=== PATIENT | male | born 1990 | race African-American/Black ===

== ENCOUNTER 2019-05-02 16:20 | Emergency (ER) | payer MEDICAID ==
[~2019-05-02] VITALS: Ht 170.2 cm; Wt 56.0 kg
[2019-05-02 16:56] LABS: BASOPHILS % (AUTO) 0.5 % (0-1); EOSINOPHILS # (AUTO) 0.1 X10'3 (0-0.9); HEMATOCRIT 33.1 % (42.0-52.0); HEMOGLOBIN 10.6 g/dl (14.0-17.9); LYMPHOCYTES # (AUTO) 1.7 X10'3 (1.1-4.8); LYMPHOCYTES % (AUTO) 55.9 % (21-51); MEAN CORPUSCULAR HEMOGLOBIN 20.7 PG (27.0-31.0); MEAN CORPUSCULAR HGB CONC 32.1 g/dL (33.0-36.5); MEAN CORPUSCULAR VOLUME 64.6 FL (78-98); MONOCYTES # (AUTO) 0.4 X10'3 (0-0.9); MONOCYTES % (AUTO) 11.6 % (2-12); NEUTROPHILS # (AUTO) 0.9 X10'3 (1.8-7.7); PLATELET COUNT 152 X10'3 (140-440); RED BLOOD COUNT 5.12 X10'6 (4.70-6.10); RED CELL DISTRIBUTION WIDTH 16.7 % (11.5-14.5); WHITE BLOOD COUNT 3.1 X10'3 (4.5-11.0)
[2019-05-02 16:59] LABS: CLARITY,URINE CLEAR (Clear); COLOR,URINE YELLOW (Yellow); GLUCOSE, URINE NEGATIVE (Neg); KETONES,URINE NEGATIVE (Neg); LEUKOCYTE ESTERASE ,URINE NEGATIVE (Neg); NITRITES, URINE NEGATIVE (Neg); OCCULT BLOOD,URINE NEGATIVE (Neg); PROTEIN,URINE NEGATIVE (Neg); UROBILINOGEN,URINE 0.2 E.U/dL (0.2-1.0)
[2019-05-02 17:01] LABS: UA COLLECTION TYPE CLN CATCH MIDSTREAM
[2019-05-02 17:10] LABS: ALANINE AMINOTRANSFERASE 18 U/L (12-78); ALBUMIN 3.7 G/DL (3.4-5.0); ALBUMIN/GLOBULIN RATIO 0.8 (1.1-1.5); ALKALINE PHOSPHATASE 38 IU/L (46-116); ANION GAP 6 (8-16); ASPARTATE AMINO TRANSFERASE 12 U/L (10-37); BILIRUBIN,TOTAL 0.3 MG/DL (0.1-1.0); BLOOD UREA NITROGEN 13 MG/DL (7-18); CALCIUM 8.5 MG/DL (8.5-10.1); CHLORIDE 110 MMOL/L (99-107); CREATININE 1.08 MG/DL (0.60-1.10); POTASSIUM 3.5 MMOL/L (3.5-5.1); SODIUM 144 MMOL/L (135-145); TOTAL CARBON DIOXIDE 28.4 MMOL/L (24-32); TOTAL PROTEIN 8.6 G/DL (6.4-8.2); eGFR 81 ML/MIN
[2019-05-02 17:16] LABS: GLUCOSE 88 MG/DL (70-104)
[2019-05-02 17:36] LABS: ANISOCYTOSIS 1+; PLATELET ESTIMATE NORMAL; TOTAL CELLS COUNTED 100
[2019-05-02 17:37] LABS: ELLIPTOCYTES 1+; HYPOCHROMASIA 1+; MICROCYTOSIS 2+; ROULEAUX 1+; SMUDGE CELLS 1+; TARGET CELLS FEW; TEAR DROP CELLS 1+
[2019-05-02] MEDS ORDERED: iohexol 300mg/ml 100ml inj. ONE (18:48)
[2019-05-02 20:30] LABS: % IRON SATURATION 25 % (11-46); IRON 58 UG/DL (53-167); TOTAL IRON BINDING CAPACITY 229 UG/DL (259-388)
[2019-05-02 21:45] VITALS: BP 127/68
== END 2019-05-02 21:47 | disposition home or self-care (01) ==
LOC: ER 16:20
DX: R10.30 Lower abdominal pain, unspecified (principal); D64.9 Anemia, unspecified; V47.0XXA Car driver injured in collision with fixed or stationary object in nontraffic accident, initial encounter; Y93.89 Activity, other specified; Y92.488 Other paved roadways as the place of occurrence of the external cause; Y99.8 Other external cause status
CPT/HCPCS: 36415; 74177; 80053; 81003; 83540; 83550; 85025; 85610; 99284; Q9967

== ENCOUNTER 2019-07-08 10:11 | Emergency (ER) | payer MEDICAID ==
[~2019-07-08] VITALS: Ht 175.3 cm; Wt 63.6 kg
[2019-07-08 10:20] VITALS: BP 126/75
[2019-07-08] MEDS ORDERED: CHLO473M3 PO (10:33)
[2019-07-08] MEDS ORDERED: PENI500T2 PO (10:33)
== END 2019-07-08 10:52 | disposition home or self-care (01) ==
LOC: ER 10:12
DX: K08.89 Other specified disorders of teeth and supporting structures (principal); Z86.2 Personal history of diseases of the blood and blood-forming organs and certain disorders involving the immune mechanism; Z79.899 Other long term (current) drug therapy
CPT/HCPCS: 99283

== ENCOUNTER 2019-09-11 23:01 | Emergency (ER) | payer MEDICAID ==
[~2019-09-11] VITALS: Ht 172.7 cm; Wt 57.2 kg
[~2019-09-11 23:01] MED LIST: CHLO473M3 PO
[2019-09-11] MEDS ORDERED: acetaminophen 325mg tablet PO ONE (23:20)
[2019-09-12 00:03] VITALS: BP 109/57
[2019-09-12] MEDS ORDERED: clindamycin 600mg/D5W 50ml 50 ML IV ONE (00:35)
[2019-09-12] MEDS ORDERED: acetaminophen 325mg tablet PO ONE (00:40)
[2019-09-12 01:08] LABS: MEAN PLATELET VOLUME 8.7 FL (7.4-10.4); NEUTROPHILS # (AUTO) 3.3 X10'3 (1.8-7.7)
[2019-09-12 01:10] LABS: BASOPHILS % (AUTO) 0.4 % (0-1); EOSINOPHILS % (AUTO) 0.1 % (0-6); HEMATOCRIT 33.1 % (42.0-52.0); HEMOGLOBIN 10.8 g/dl (14.0-17.9); LYMPHOCYTES # (AUTO) 2.2 X10'3 (1.1-4.8); LYMPHOCYTES % (AUTO) 34.8 % (21-51); MEAN CORPUSCULAR HEMOGLOBIN 20.4 PG (27.0-31.0); MEAN CORPUSCULAR HGB CONC 32.5 g/dL (33.0-36.5); MEAN CORPUSCULAR VOLUME 62.8 FL (78-98); MONOCYTES # (AUTO) 0.9 X10'3 (0-0.9); MONOCYTES % (AUTO) 13.8 % (2-12); NEUTROPHILS % (AUTO) 50.9 % (42-75); PLATELET COUNT 154 X10'3 (140-440); RED BLOOD COUNT 5.28 X10'6 (4.70-6.10); RED CELL DISTRIBUTION WIDTH 15.8 % (11.5-14.5); WHITE BLOOD COUNT 6.4 X10'3 (4.5-11.0)
[2019-09-12 01:16] LABS: ALANINE AMINOTRANSFERASE 21 U/L (12-78); ALBUMIN 3.2 G/DL (3.4-5.0); ALBUMIN/GLOBULIN RATIO 0.6 (1.1-1.5); ALKALINE PHOSPHATASE 45 IU/L (46-116); ANION GAP 8 (8-16); ASPARTATE AMINO TRANSFERASE 15 U/L (10-37); BILIRUBIN,TOTAL 0.5 MG/DL (0.1-1.0); BLOOD UREA NITROGEN 10 MG/DL (7-18); BUN/CREATININE RATIO 11.4 (5.4-32.0); CALCIUM 8.7 MG/DL (8.5-10.1); CHLORIDE 105 MMOL/L (99-107); CREATININE 0.88 MG/DL (0.60-1.10); POTASSIUM 3.7 MMOL/L (3.5-5.1); SODIUM 140 MMOL/L (135-145); TOTAL CARBON DIOXIDE 26.6 MMOL/L (24-32); TOTAL PROTEIN 8.8 G/DL (6.4-8.2); eGFR > 90 ML/MIN
[2019-09-12 01:18] LABS: GLUCOSE 97 MG/DL (70-104)
--- NOTE | 2019-09-12 02:01 | NUR ---
PT RESTING INB ED. NO FEVER AT THIS TIME.
[2019-09-12] MEDS ORDERED: CLIN-90 PO (02:25)
--- NOTE | 2019-09-12 02:36 | NUR ---
IV DC. IV INTACT. PT TOLERATED WELL.
== END 2019-09-12 02:41 | disposition home or self-care (01) ==
LOC: ER 23:02
DX: K04.7 Periapical abscess without sinus (principal)
CPT/HCPCS: 36415; 80053; 83605; 85025; 87040; 96365; 99283; J3490

== ENCOUNTER 2019-09-12 23:45 | Emergency (ER) | payer MEDICAID ==
[~2019-09-12] VITALS: Ht 172.7 cm; Wt 56.8 kg
[~2019-09-12 23:45] MED LIST changes: +CLIN-90 PO
[2019-09-12 23:55] VITALS: BP 131/68
== END 2019-09-13 01:55 | disposition left against medical advice (07) ==
LOC: ER 23:46
DX: K04.7 Periapical abscess without sinus (principal); Z53.21 Procedure and treatment not carried out due to patient leaving prior to being seen by health care provider

== ENCOUNTER 2019-09-13 02:36 | Emergency (ER) | payer MEDICAID ==
[~2019-09-13] VITALS: Ht 172.7 cm; Wt 56.8 kg
[2019-09-13] MEDS ORDERED: iohexol 300mg/ml 100ml inj. ONE (03:13)
--- NOTE | 2019-09-13 03:20 | NUR ---
NEW IV STARTED ON PT FOR CT. PT ON HIS WAY TO GET A CT SCAN. PT IS AFEBRILE AT THIS TIME.
--- NOTE | 2019-09-13 04:23 | NUR ---
PT RESTING IN BED. AWAITING CT RESULTS. PT HAS NO OTHER REQUEST OR CONCERNS AT THIS TIME.
--- NOTE | 2019-09-13 05:41 | NUR ---
PT SLEEPING. AWAITING CT RESULTS.
--- NOTE | 2019-09-13 06:09 | NUR ---
CALLED [facility] FOR DOCTOR TO DOCTOR CONSULT AND ORAL SURGERY
[2019-09-13 06:15] VITALS: BP 132/45
[2019-09-13] MEDS ORDERED: oxymetazoline 15 ML nasal spray NS ONE (06:20)
[2019-09-13] MEDS ORDERED: acetaminophen 325mg tablet PO STA (06:22)
--- NOTE | 2019-09-13 06:22 | NUR ---
OBTAINED A VERBAL ORDER FOR TYLENOL 650MG PO.
== END 2019-09-13 06:56 | disposition home or self-care (01) ==
LOC: ER 02:36
DX: K04.7 Periapical abscess without sinus (principal); J45.909 Unspecified asthma, uncomplicated; H57.11 Ocular pain, right eye; F10.99 Alcohol use, unspecified with unspecified alcohol-induced disorder; Z79.899 Other long term (current) drug therapy; Y90.9 Presence of alcohol in blood, level not specified
CPT/HCPCS: 70487; 99284; Q9967

== ENCOUNTER 2020-06-20 04:43 | Emergency (ER) | payer MEDICAID ==
[~2020-06-20] VITALS: Ht 172.7 cm; Wt 63.6 kg
[~2020-06-20 04:43] MED LIST changes: -CLIN-90 PO; +CLIN-97 PO
--- NOTE | 2020-06-20 04:54 | NUR ---
HAS RLQ AND RUQ PAIN, NO REBOUND TENDERNESS, PAIN WITH PALPATION TO THOSE AREAS.
[2020-06-20 05:18] LABS: EOSINOPHILS # (AUTO) 0.1 X10'3 (0-0.9); HEMOGLOBIN 11.5 g/dl (14.0-17.9); LYMPHOCYTES # (AUTO) 1.6 X10'3 (1.1-4.8); MEAN CORPUSCULAR VOLUME 64.1 FL (78-98); MONOCYTES # (AUTO) 0.6 X10'3 (0-0.9); NEUTROPHILS # (AUTO) 2.1 X10'3 (1.8-7.7)
[2020-06-20 05:20] LABS: BASOPHILS % (AUTO) 0.6 % (0-1); EOSINOPHILS % (AUTO) 1.2 % (0-6); HEMATOCRIT 36.9 % (42.0-52.0); LYMPHOCYTES % (AUTO) 37.3 % (21-51); MEAN CORPUSCULAR HGB CONC 31.2 g/dL (33.0-36.5); MEAN PLATELET VOLUME 9.2 FL (7.4-10.4); MONOCYTES % (AUTO) 13.1 % (2-12); NEUTROPHILS % (AUTO) 47.8 % (42-75); PLATELET COUNT 170 X10'3 (140-440); RED BLOOD COUNT 5.76 X10'6 (4.70-6.10); RED CELL DISTRIBUTION WIDTH 16.9 % (11.5-14.5); WHITE BLOOD COUNT 4.4 X10'3 (4.5-11.0)
[2020-06-20 05:30] LABS: CLARITY,URINE CLEAR (Clear); COLOR,URINE YELLOW (Yellow); GLUCOSE, URINE NEGATIVE (Neg); KETONES,URINE NEGATIVE (Neg); LEUKOCYTE ESTERASE ,URINE NEGATIVE (Neg); NITRITES, URINE NEGATIVE (Neg); OCCULT BLOOD,URINE NEGATIVE (Neg); PROTEIN,URINE NEGATIVE (Neg)
[2020-06-20 05:32] LABS: ALANINE AMINOTRANSFERASE 16 U/L (12-78); ALBUMIN 3.6 G/DL (3.4-5.0); ALBUMIN/GLOBULIN RATIO 0.6 (1.1-1.5); ALKALINE PHOSPHATASE 54 IU/L (46-116); ANION GAP 7 (8-16); ASPARTATE AMINO TRANSFERASE 13 U/L (10-37); BILIRUBIN,TOTAL 0.5 MG/DL (0.1-1.0); BLOOD UREA NITROGEN 8 MG/DL (7-18); BUN/CREATININE RATIO 9.4 (5.4-32.0); CALCIUM 8.7 MG/DL (8.5-10.1); CHLORIDE 105 MMOL/L (99-107); CREATININE 0.85 MG/DL (0.60-1.10); LIPASE 58 U/L (73-393); POTASSIUM 3.4 MMOL/L (3.5-5.1); SODIUM 140 MMOL/L (135-145); TOTAL PROTEIN 9.5 G/DL (6.4-8.2); eGFR > 90 ML/MIN
[2020-06-20 05:34] LABS: UA COLLECTION TYPE NON-SPECIFIED
[2020-06-20 05:35] LABS: GLUCOSE 86 MG/DL (70-104)
[2020-06-20] MEDS ORDERED: sucralfate 1gm/10ml UD suspension PO SCH (05:55)
[2020-06-20] MEDS ORDERED: mag hydrox/Alum hydrox/simeth 30ml oral suspension PO ONE (05:55)
[2020-06-20] MEDS ORDERED: LIDOcaine Viscous 15ml cup MM PRN (05:55)
[2020-06-20] MEDS ORDERED: pantoprazole 40 MG vial IV ONE (05:55)
[2020-06-20] MEDS ORDERED: famotidine/PF 10 mg/ml inj IV ONE (05:55)
[2020-06-20] MEDS ORDERED: OMEP20CA15 PO (06:14)
[2020-06-20 06:53] VITALS: BP 124/82
[2020-06-20 06:56] LABS: ANISOCYTOSIS 1+; MICROCYTOSIS 2+; PLATELET ESTIMATE NORMAL; TOTAL CELLS COUNTED 100
[2020-06-20 06:57] LABS: HYPOCHROMASIA 1+; POIKILOCYTOSIS FEW
== END 2020-06-20 06:55 | disposition home or self-care (01) ==
LOC: ER 04:44
DX: R10.11 Right upper quadrant pain (principal); Z60.2 Problems related to living alone; Z79.2 Long term (current) use of antibiotics; Z79.899 Other long term (current) drug therapy
CPT/HCPCS: 36415; 80053; 81003; 83690; 85007; 85025; 96374; 96375; 99284; C9113; J3490

== ENCOUNTER 2020-08-21 13:07 | Emergency (ER) | payer MEDICAID ==
[~2020-08-21] VITALS: Ht 172.7 cm; Wt 63.0 kg
[~2020-08-21 13:07] MED LIST changes: +OMEP20CA15 PO
--- NOTE | 2020-08-21 13:53 | NUR ---
patient LWOBS,Dr. Barajas made aware.
== END 2020-08-21 13:55 | disposition left against medical advice (07) ==
LOC: ER 13:07
DX: R05 Cough (principal); R09.89 Other specified symptoms and signs involving the circulatory and respiratory systems; Z53.21 Procedure and treatment not carried out due to patient leaving prior to being seen by health care provider

== ENCOUNTER 2021-01-26 19:21 | Emergency (ER) | payer MEDICAID ==
[~2021-01-26] VITALS: Ht 172.7 cm; Wt 63.6 kg
[2021-01-26 19:52] VITALS: BP 138/86
[2021-01-26] MEDS ORDERED: DOXYCYCLINE 100MG CAPSULE PO STA (20:23)
[2021-01-26] MEDS ORDERED: CefTRIAXone 1000mg IM Kit (w/lidocaine diluent) IM STA (20:23)
[2021-01-26] MEDS ORDERED: DOXY100C2 PO (20:40)
[2021-01-26 21:07] LABS: CLARITY,URINE SLIGHTLY CLOUDY (Clear); COLOR,URINE YELLOW (Yellow); GLUCOSE, URINE NEGATIVE (Neg); KETONES,URINE NEGATIVE (Neg); LEUKOCYTE ESTERASE ,URINE NEGATIVE (Neg); NITRITES, URINE NEGATIVE (Neg); OCCULT BLOOD,URINE NEGATIVE (Neg); PROTEIN,URINE NEGATIVE (Neg)
[2021-01-26 21:11] LABS: UA COLLECTION TYPE VOIDED
[2021-01-26 21:13] LABS: BACTERIA,URINE FEW /HPF (Neg); MUCUS STRANDS FEW /LPF (Neg); RBC,URINE 0-2 /HPF (0-2); SQUAMOUS EPITHELIAL CELL,UR FEW /LPF (FEW)
[2021-01-26 21:14] LABS: AMORPHOUS PHOSPHATES 3+
== END 2021-01-26 21:06 | disposition home or self-care (01) ==
LOC: ER 19:22
DX: R30.0 Dysuria (principal); R20.2 Paresthesia of skin; Z86.2 Personal history of diseases of the blood and blood-forming organs and certain disorders involving the immune mechanism; Z72.89 Other problems related to lifestyle; Z79.2 Long term (current) use of antibiotics; Z79.899 Other long term (current) drug therapy
CPT/HCPCS: 36415; 81001; 87088; 87491; 87591; 96372; 99283; J0696

== ENCOUNTER 2022-07-25 00:42 | Emergency (ER) | payer MEDICAID ==
[~2022-07-25] VITALS: Ht 172.7 cm; Wt 70.5 kg
[2022-07-25 00:45] VITALS: BP 134/79
== END 2022-07-25 02:53 | disposition left against medical advice (07) ==
LOC: ER 00:42
DX: S69.91XA Unspecified injury of right wrist, hand and finger(s), initial encounter (principal); Z53.21 Procedure and treatment not carried out due to patient leaving prior to being seen by health care provider; W49.04XA Ring or other jewelry causing external constriction, initial encounter; Y93.89 Activity, other specified; Y92.89 Other specified places as the place of occurrence of the external cause; Y99.8 Other external cause status

== ENCOUNTER 2025-07-17 00:32 | Inpatient (IN) | payer MEDICAID ==
[2025-07-17] VITALS (17 sets, daily range): BP systolic 85–141; BP diastolic 42–73; PULSE 77–111; RESP 13–19; TEMP 97.9–101.2; O2SAT 92–98
[~2025-07-17] VITALS: Ht 172.7 cm; Wt 68.2 kg
[~2025-07-17 00:32] MED LIST changes: +CHLO473M13 PO; -CHLO473M3 PO; +CLIN-224 PO; -CLIN-97 PO
--- NOTE | 2025-07-17 01:28 | Physician Documentation ---
History of Present Illness ~ Chief Complaint: Abdominal Pain w/vomiting Stated Complaint: APPENDIX DISCOMFORT Time Seen by MD: 01:27 Primary Medical Doctor: NO DOCTOR HPI Patient presents to the emergency room for evaluation of right lower quadrant pa in. He says symptoms began two days ago. Bowel movements and urination reported to be normal. Medication Reconciliation Allergies: Coded Allergies: No Known Allergies (Unverified , 07/17/25) Scheduled Chlorhexidine Gluconate (Periogard), 15 ML PO Q12H Clindamycin HCL* (Clindamycin HCL*), 1 CAP PO Q6H Omeprazole (Omeprazole), 2 CAP PO BID Past Medical History Past Medical History: Anemia Past Surgical History: noncontributory Alcohol Use: Occasionally Drug Use: none Lives with: Alone Lives In: Home Review of Systems ROS All review of systems negative except as per HPI Physical Exam Vital Signs: Temperature: 100.7, Source: Oral, Heart Rate: 96, Respiratory Rate: 16, BP: 121/67, Pulse Oximetry: 98, Weight: 68.200 Physical Exam General: Patient is awake, alert, oriented x4 in no acute distress and well appearing.~ Head: Normocephalic and atraumatic. Eyes: Conjunctival normal. EOMI. PERRL. ENT: Mucous membranes moist. Neck: Supple, trachea is midline. Chest: Clear to auscultation bilaterally without rales, rhonchi, or wheezes. There is no accessory muscle use or retractions. Cardiac: RRR without murmurs, gallops, or rubs. Abd: Soft, nondistended, positive right lower quadrant tenderness to palpation without peritonitis Progress Results/Orders Results/Orders Orders - QUE WASHINGTON MD Ct Abdomen Pelvis (07/17/25 01:40) Piperacillin/Tazo 4.5gm/100ml (Zosyn 4.5 (07/17/25 02:30) Page Hospitalist (07/17/25 02:41) Fill Out Med Reconciliation (07/17/25 02:41) Completed Orders - QUE WASHINGTON MD Cbc/Diff (07/17/25 00:46) BMP (07/17/25 00:46) Lipase (07/17/25 00:46) CMP (07/17/25 00:46) Ketorolac Trometh 15mg/Ml Vial (Toradol (07/17/25 01:30) Ondansetron Inj. (Zofran 4mg/2ml Vial) (07/17/25 01:30) Ct Abdomen Pelvis (07/17/25 01:40) Procalcitonin (07/17/25 01:32) Ua W/Microscopic, Cult If Ind (07/17/25 01:40) Morphine 4mg/Ml Inj. (Morphine Inj.) (07/17/25 02:30) Piperacillin/Tazo 4.5gm/100ml (Zosyn 4.5 (07/17/25 02:41) Medications Received in ER Medications (Trade) Dose Ordered Sig/Lazaro Route PRN Reason Start Time Stop Time Status Last Admin Dose Admin (Toradol injection) 15 mg ONCE ONCE IV 07/17/25 01:30 07/17/25 01:31 DC 07/17/25 02:21 15 MG (Zofran 4mg/2ml vial) 4 mg ONCE ONCE IV 07/17/25 01:30 07/17/25 01:31 DC 07/17/25 02:21 4 MG Vital Signs 07/17/25 07/17/25 00:41 02:21 Temp 100.7 Pulse 96 Resp 16 17 B/P (MAP) 121/67 Pulse Ox 98 Laboratory Tests Test 07/17/25 01:40 07/17/25 01:43 Urine Specimen Description Cln catch midstream Urine Color Yellow Urine Clarity Slightly cloudy Urine pH 6.5 Urine Specific [place] 1.025 Urine Protein 30 H Urine Glucose (UA) Negative Urine Ketones >=80 Urine Occult Blood Trace-intact Urine Nitrite Negative Urine Bilirubin Small Urine Urobilinogen 0.2 Urine Leukocyte Esterase Negative Urine RBC 3-10 Urine WBC 0-4 Urine Squamous Epithelial Cells Few Urine Bacteria None seen Urine Mucus Few Urine Culture Indicated Not ind Volume Urine Centrifuged 10 ml Urine Comment White Blood Count 10.1 Red Blood Count 5.44 Hemoglobin 11.3 L Hematocrit 34.9 L Mean Corpuscular Volume 64.1 L Mean Corpuscular Hemoglobin 20.7 L Mean Corpuscular Hemoglobin Concent 32.3 L Red Cell Distribution Width 16.8 H Platelet Count 135 L Mean Platelet Volume 8.7 Neutrophils (%) (Auto) 89.7 H Lymphocytes (%) (Auto) 5.5 L Monocytes (%) (Auto) 4.3 Eosinophils (%) (Auto) 0.2 Basophils (%) (Auto) 0.3 Neutrophils # (Auto) 9.0 H Lymphocytes # (Auto) 0.6 L Monocytes # (Auto) 0.4 Eosinophils # (Auto) 0.0 Basophils # (Auto) 0.0 CBC Comment Sodium Level 138 Potassium Level 3.3 L Chloride Level 102 Carbon Dioxide Level 28.8 Anion Gap 7 L Blood Urea Nitrogen 12 Creatinine 0.81 Estimated GFR/1.73 m2 > 90 BUN/Creatinine Ratio 14.8 Glucose Level 122 H Calcium Level 8.5 Total Bilirubin 0.6 Aspartate Amino Transf (AST/SGOT) 14 Alanine Aminotransferase (ALT/SGPT) 23 Alkaline Phosphatase 55 Total Protein 7.9 Albumin 3.9 Globulin 4.0 Albumin/Globulin Ratio 1.0 L Lipase 11 L Procalcitonin 1.75 H Chemistry Comments Medical Decision Making Additional information obtaine: N/A Findings Patient presents to the emergency room for evaluation of right lower quadrant pain. Differentials include but are not limited to appendicitis constipation diverticulitis kidney stone pancreatitis therefore emergent labs and imaging indicated. Labs concerning for elevation of procalcitonin although that has a reassuring white blood cell count. CT scan positive for appendicitis without rupture. IV Zosyn initiated. Patient's vitals are stable. Surgeon has been consulted Diff Dx GI Bleed:Consideration: Include: AE fistula, Angiodysplasia, Bleeding diathesis, Blood loss anemia, Carcinoma, Diverticulosis, Diverticulitis, Esopha geal varicies, Esophagitis, Gastritis, Gastroenteritis, Inflammatory BD, Enedelia-Edward syndrome, Meckel's diverticulum, PUD, Other Diff Dx Pain:Considerations: Include: AAA, Angina/AK, Aortic dissection, Appendicitis, Bowel obstruction, Cholangitis, Cholecystitis, Cholelithasis, Constipation, Diverticular disease, Esophageal rupture, Esophagitis, Gastritis, Gastroenteritis, GI hemorrhage, Hepatitis, Hernia, Inflammatory BD, Ischemic bowel, Mass, Pancreatitis, Porphyria, PUD, Testicular torsion, Trauma, intraabdominal, Urinary obstruction, Urinary tract infection, Urolithiasis, Other Diff Dx N/V/D:Considerations: Include: Appendicitis, Bowel obstruction, Dehydration, DKA, Diarrhea - bacterial, Diarrhea - parasitic, Diarrhea - viral, Diverticulitis, Diverticulosis, Drug toxicity, Electrolyte imbalance, Food poisoning, Gastroenteritis, GE reflux, GI bleed, Hepatitis, Hernia, Hypovolemia, Hypotension, Inflammatory BD, Impaction, Malnutrition, Pancreatitis, PUD, Renal failure, Urinary obstruction, UTI, Urolithiasis, Other Diff Dx Rectal:Considerations: Include: Fissure, Fistula, Foreign body, Impaction, Perirectal abscess, Prostatitis, Rectal prolapse, Subcutaneous abscess, Thrombosed hemorrhoid, Ulcer, UTI, Other Departure Admitted to Inpatient Unit: yes, to hospitalist Impression: Primary Impression: Appendicitis Condition: Guarded Referrals: NO PRIMARY CARE PROVIDER (PCP) Critical Care Note Total Time (mins): 39 Critical Care Note The very real possibility of a deterioration of this patient's condition required the highest level of my preparedness for sudden, emergent intervention. I provided critical care services, which included medication orders, frequent reevaluations of the patient's condition and response to treatment, ordering and reviewing test results, and discussing the case with various consultants. Excludes time spent performing separately billable procedures. The critical care time associated with the care of the patient was 39 minutes not counting procedures Signature Scribe Signature: No scribe Attestation: The note accurately reflects work and decisions made by me.Que Washington MD 07/17/25 02:47 QUE WASHINGTON MD Jul 17, 2025 01:28
[2025-07-17 01:55] LABS: MEAN PLATELET VOLUME 8.7 FL (7.4-10.4); RED CELL DISTRIBUTION WIDTH 16.8 % (11.5-14.5)
[2025-07-17 02:11] LABS: CREATININE 0.81 MG/DL (0.60-1.10); TOTAL CARBON DIOXIDE 28.8 MMOL/L (24-32); eCRCL 123 ML/MIN; eGFR > 90 ML/MIN
[2025-07-17 02:12] LABS: LEUKOCYTE ESTERASE ,URINE NEGATIVE (Neg); NITRITES, URINE NEGATIVE (Neg); OCCULT BLOOD,URINE TRACE-INTACT (Neg)
[2025-07-17 02:19] LABS: UA COLLECTION TYPE CLN CATCH MIDSTREAM
[2025-07-17 02:21] LABS: MUCUS STRANDS FEW /LPF (Neg); SQUAMOUS EPITHELIAL CELL,UR FEW /LPF (FEW)
[2025-07-17] MEDS: ondansetron/PF 4mg/2ml inj IV ONE (02:21)
[2025-07-17] MEDS: ketorolac trometh 15mg/ml vial 15 MG/ML ML IV ONE (02:21)
--- NOTE | 2025-07-17 02:37 | RADIOLOGY REPORT ---
Exam: CT CT ABDOMEN PELVIS History: RLQ pain Comparison Study: XR CHEST 2 VIEWS on DOS: 08/14/24 Technique: Multidetector spiral CT of the abdomen was performed from lung bases to pubic symphysis. Imaging was performed without IV contrast. Axial, coronal and sagittal multiplanar reformats were obtained from the axial data set by the technologist. Radiation Dose : 1. Abdomen/Pelvis: CTDIvol 9.8 mGy, DLP 467.42 mGy*cm. Findings: Evaluation of solid organs is limited due to lack of intravenous contrast use. Lung Bases: No acute or significant lung base finding. Normal heart size. No pleural or pericardial effusion. Liver: The liver is normal in size. No focal lesions. Gallbladder and Biliary Tree: Unremarkable Spleen: Unremarkable Pancreas: The pancreas is grossly normal in appearance. Adrenal Glands: Unremarkable Kidneys: Kidneys are grossly normal without calculi or hydronephrosis. Bladder: Grossly unremarkable for degree of distention. Bowel: Small sliding-type hiatal hernia. The stomach is grossly normal in appearance. Small bowel and colon are normal in caliber and distribution. The appendix is fluid-filled and dilated, measuring up to 14 mm in diameter, with a proximal appendicolith. Moderate diffuse periappendiceal inflammatory change. No definite evidence of perforation or periappendiceal abscess.. Ascites: Absent Lymphadenopathy: No mesenteric, retroperitoneal or periportal lymphadenopathy. Abdominal Wall and Mesentery: Unremarkable. Vasculature: The visualized abdominal aorta is normal in size and caliber. Evaluation of abdominal and pelvic vessels is limited due to lack of intravenous contrast. Pelvic Organs: Unremarkable Musculoskeletal: No aggressive focal bony lesions, acute fractures or dislocation. IMPRESSION: 1. Acute appendicitis without definite evidence of perforation or periappendiceal abscess. 2. Small sliding-type hiatal hernia. Critical Result: Acute appendicitis Findings discussed with YUDITH HAYNES at 07/17/2025 05:34 AM EST, and acknowledged receipt and understanding of the findings. Radiation optimization: All CT scans at this facility use at least one of these dose optimization techniques: automated exposure control mA and/or kV adjustment per patient size (includes targeted exams where dose is matched to clinical indication) or iterative reconstruction.
[2025-07-17] MEDS: piperacillin/tazo 4.5gm/100ml 100 ML IV ONE (02:47)
[2025-07-17] MEDS: piperacillin/tazo 4.5gm/100ml 100 ML IV SCH (02:47)
[2025-07-17] MEDS ORDERED: magnesium sulf-water 4G/100mL 100 ML IV PRN (03:10)
[2025-07-17] MEDS ORDERED: magnesium sulf-water 2g/50mL 50 ML IV PRN (03:10)
[2025-07-17] MEDS ORDERED: potassium Cl 20 mEq SR tablet PO PRN ×2 (03:10)
[2025-07-17] MEDS ORDERED: mag hydrox/Alum hydrox/simeth 30ml oral suspension PO PRN (03:10)
[2025-07-17] MEDS ORDERED: potassium Cl 40MEQ/1/2NS 520ml 520 ML IV PRN (03:10)
[2025-07-17] MEDS ORDERED: ondansetron/PF 4mg/2ml inj IV PRN ×2 (03:10→17:00)
[2025-07-17] MEDS ORDERED: magnesium Cl slow-release 64mg tablet PO PRN (03:10)
--- NOTE | 2025-07-17 03:14 | HISTORY AND PHYSICAL-Residence ---
History & Physical Providers to CC Resident Creating Document: ADONIS FATIMA RES ~ History of Present Illness Primary Medical Doctor: NO DOCTOR Reason for Admit\Complaint: Abdominal pain History of Present Illness A 35-year-old male with no past medical history presented to the ED in view of left lower quadrant abdominal pain for the last two days. Patient states that he started to have sharp abdominal pain with a severity of 9/10 in the umbilical region that radiated to the left lower quadrant. The pain is more pronounced in the left lower quadrant currently. Abdominal pain increases and moving around and relieves with rest. Patient had associated nausea and vomitings for about at least 90 10 episodes. Patient has loss of appetite. Patient states that he had a fever with a temperature of about 100.7 associated with chills and rigors. 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 Chest pressure, chest discomfort, palpitations, syncope, lower extremity edema, paroxysmal nocturnal dyspnea Respiratory: No Shortness of breath and cough, No hemoptysis Gastrointestinal: Nausea vomitings, abdominal pain, loss of appetite Musculoskeletal: No joint pains. Integumentary: No change in skin, hair, nails. No swelling, bruising, abrasions Neurologic: No headache, neck pain, numbness or tingling of the extremities, weakness Psychiatric: No delusions, depression, loss of interest in normal activity or change in sleep pattern, hallucinations, suicidal ideations Endocrine: No fatigue, weakness, polydipsia, polyuria, change in appetite, heat or cold intolerance, sweating, dry skin Exam Vitals: Vital Signs Date Time Temp Pulse Resp B/P (MAP) Pulse Ox O2 Delivery O2 Flow Rate FiO2 07/17/25 02:21 17 07/17/25 00:41 100.7 96 121/67 98 General: General: Alert, awake, oriented, in acute distress HEENT: PERRLA, no icterus, pallor, lymphadenopathy, carotid bruit Respiratory system: Bilateral vesicular breath sounds heard, no adventitious breath sounds CVS: S1-S2 heard, no murmurs/rubs/gallop GI: Tenderness in the left lower quadrant, sluggish bowel sounds Soft, no organomegaly, no guarding/rigidity Neuro: No focal neurological deficits present Mental status exam: alert and consciousness, orientation, memory, speech - Cranial nerve test: Cranial nerves 2-12 intact - Motor system: Nutrition, Tone 3+, Power 5/5, no involuntary movements - Sensory system: Intact - Reflex testing: Biceps, triceps and knee reflexes 2+ - Cerebellar: Normal Extremities: No edema cyanosis clubbing/deformities Skin: Warm and dry Diagnostic Data Last Recorded Lab Results: 07/17/25 0143 07/17/25 0143 Advance Care Planning Advanced Care plannin - 30 Minutes (I spent 20 minutes discussing various resuscitative measures and the patient decided to be full code) Additional Plan Assessment: A 35-year-old male with no past medical history presented to the ED in view of abdominal pain. Patient is admitted for the evaluation management of acute appendicitis. Plan: Acute appendicitis, probably complicated Sepsis, POA CT abdomen: Acute appendicitis without definite evidence of perforation or periappendiceal abscess. Normal WBC count, increased neutrophilic predominance, elevated procalcitonin Patient received Zosyn in the ED. Continue IV Zosyn q.12h IV fluids at 100 cc/hour Pain management: IV Zofran 4 mg q.6h p.r.n. for nausea and vomitings Dr. Meyer is consulted, awaiting recommendations Mild hypokalemia On potassium replacement protocol Continue to monitor potassium levels Code status: Full code Diet: NPO DVT prophylaxis: SCD Disposition: Admit to surgical floor, follow up with Dr. Meyer in a.m. Adonis Fatima MD Internal Medicine, PGY 2 Date of Service: Jul 17, 2025 Billing Provider: LB GREEN MD Addendum Attestation I agree with the residents assessment and plan as below: 35 year old male admitted with appendicitis Plan: morphine prn npo surgery consult CCT 51 min using HIPPA compliant A/V technology ADONIS FATIMA, RES Jul 17, 2025 03:14 LB GREEN MD Jul 17, 2025 04:55
[2025-07-17 03:39] LABS: PLATELET ESTIMATE DECREASED
[2025-07-17] MEDS: morphine 4 MG/ML inj SYRINge IV ONE (03:44)
[2025-07-17] MEDS: normal saline 1000ml 1,000 ML IV SCH (03:54)
[2025-07-17] MEDS: HYDROcodone/acetaminophen 5mg/325mg tablet PO PRN (07:29)
[2025-07-17] MEDS: ondansetron/PF 4mg/2ml inj IV PRN (07:29)
[2025-07-17] MEDS: docusate sod 100mg capsule PO SCH (07:57)
[2025-07-17] MEDS: K and/or MAG REPLACEMENT MC SCH (07:59)
--- NOTE | 2025-07-17 10:12 | PROGRESS NOTE ---
Progress Note ID Providers to CC ~ Progress Note Progress Note: pt seen and examined-needs VANNA Lofton MD Jul 17, 2025 10:12
[2025-07-17] MEDS ORDERED: labetalol 20mg/4ml (5mg/ml) syringe IV PRN (17:00)
[2025-07-17] MEDS ORDERED: fentaNYL/PF 50MCG/1 ML 2ML syringe IV PRN ×2 (17:00)
[2025-07-17] MEDS ORDERED: morphine 4 MG/ML inj SYRINge IV PRN ×2 (17:00)
[2025-07-17] MEDS ORDERED: hydrALAZINE 20mg/ml inj. IV PRN (17:00)
[2025-07-17] MEDS ORDERED: ringers solution, lacted 1,000 ML IV SCH (17:00)
--- NOTE | 2025-07-17 17:48 | PROGRESS NOTE ---
Progress Note ID Providers to CC ~ Progress Note Progress Note: discussed procedure including risks/benefits/alternatives VANNA VIDALES MD Jul 17, 2025 17:48
[2025-07-17] MEDS ORDERED: etomidate 2mg/ml inj. ONE (18:13)
[2025-07-17] MEDS ORDERED: fentaNYL/PF 50MCG/1 ML 2ML syringe ONE (18:14)
[2025-07-17] MEDS ORDERED: midazolam 1 mg/ML 2ml injection ONE (18:15)
[2025-07-17] MEDS ORDERED: propofol inj 20 ML IV ONE (18:15)
[2025-07-17] MEDS ORDERED: ondansetron/PF 4mg/2ml inj ONE (18:15)
[2025-07-17] MEDS ORDERED: rocuronium 10mg/ml inj IV ONE (18:15)
[2025-07-17] MEDS ORDERED: dexamethasone sod phosphate 4mg/ml inj. ONE (18:16)
[2025-07-17] MEDS ORDERED: BUPIVAcaine 2.5mg/ml inj 50ml vial (contains preservative) ONE (18:17)
[2025-07-17] MEDS ORDERED: acetaminophen 1,000mg/100ml IV 100 ML IV ONE (18:49)
[2025-07-17] MEDS ORDERED: ceFOXitin 1000 MG inj ONE ×2 (19:03)
--- NOTE | 2025-07-17 19:58 | OPERATIVE REPORT ---
Operative Report Providers to CC ~ Date of Procedure: Jul 17, 2025 Pre-Operative Diagnosis: Acute appendicitis Post-Operative Diagnosis SAME as PRE-Op Procedure Performed cortney tan Surgeon: jg booth Anesthesiologist: Jhony June Type of Anesthesia: General Findings: gangrenous appendicitis Estimated Blood Loss: 50 ml Specimen Removed: VANNA Bone MD Jul 17, 2025 19:58
[2025-07-17] MEDS ORDERED: HYDROcodone/acetaminophen 10/325mg tab PO PRN (20:05)
[2025-07-17] MEDS: BUPIVAcaine/PF 2.5 mg/ml (0.25%) 30ml vial IJ ONE (20:53)
[2025-07-18] VITALS (8 sets, daily range): BP systolic 111–127; BP diastolic 58–80; PULSE 83–107; RESP 16–19; TEMP 98–100.2; O2SAT 95–98
[2025-07-18] MEDS: piperacillin/tazo 3.375gm/50ml 50 ML IV SCH (00:40)
--- NOTE | 2025-07-18 02:05 | OPERATIVE REPORT ---
DATE OF SURGERY: 07/17/2025 DICTATING PHYSICIAN: Norris Meyer MD PREOPERATIVE DIAGNOSIS: Appendicitis. POSTOPERATIVE DIAGNOSIS: Gangrenous appendicitis. PROCEDURE PERFORMED: Robotic appendectomy. SURGEON: Norris Meyer MD OTHER SALES SUPPORT WORKER: None. ANESTHESIA: General/Jhony June MD. DRAINS: Nicolás drain. INDICATIONS FOR OPERATION: The patient is a 35-year-old male with history of abdominal pain, found to have acute appendicitis, taken to surgery robotic appendectomy. INTRAOPERATIVE FINDINGS: Gangrenous appendicitis. DESCRIPTION OF PROCEDURE: The patient was placed supine on the operating table. After induction of general anesthesia and placement of endotracheal tube, the abdomen was prepped and draped. A suprapubic incision was then obtained. A supraumbilical incision was made and a #12 port was placed using open technique. Pneumoperitoneum was begun by insufflation of CO2. Two ports were placed in the left lower quadrant and one in the right upper quadrant. The robot was then brought to the field. Camera port was docked, camera placed and camera targeted. Additional ports were then docked and instruments placed. Abdomen explored. The patient was found to have gangrenous appendicitis. Cecum was mobilized in the right lower quadrant. The appendiceal mesentery. Hemostasis was found to be adequate. Robotic instruments were removed. The robot removed from the field. The appendix was placed in a lap bag using the laparoscope. The abdomen was then copiously irrigated with large amount of antibiotic-containing solution. A #19 Nicolás drain was placed through a port incision directed into the right gutter and pelvis. Ports removed under laparoscopic vision with no evidence of active bleeding. Appendix was removed using a lap bag. Wounds were then closed in layers. Skin was closed with clips. Dressing applied. The patient was transferred to recovery in stable condition. Norris Meyer MD TID: [id number] RECEIPT: [id number] KB/CAM
[2025-07-18 06:22] LABS: MEAN PLATELET VOLUME 10.0 FL (7.4-10.4); RED CELL DISTRIBUTION WIDTH 16.7 % (11.5-14.5)
[2025-07-18 06:46] LABS: CREATININE 0.68 MG/DL (0.60-1.10); TOTAL CARBON DIOXIDE 25.8 MMOL/L (24-32); eCRCL 146 ML/MIN; eGFR > 90 ML/MIN
[2025-07-18] MEDS: magnesium hydroxide 30ml (MOM) UD suspension PO PRN (07:05)
--- NOTE | 2025-07-18 15:31 | PROGRESS NOTE- Residence ---
Progress Note - Resident Providers to CC Resident Creating Document: WEI PLASENCIA RES ~ Antibiotic Timeout Antibiotic Ordered?: Yes Subjective Patient was seen and examined on bedside, reports pain over surgical area, passing flatus but no has passed bowel movement. Objective Vital Signs Date Time Temp Pulse Resp B/P (MAP) Pulse Ox O2 Delivery O2 Flow Rate FiO2 07/18/25 11:48 14 07/18/25 10:00 98.7 86 111/70 (84) 96 Room Air 07/18/25 07:19 0.0 Result Diagram: 07/18/2552507/18/25525 General: Alert, awake, oriented, in acute distress HEENT: PERRLA, no icterus, pallor, lymphadenopathy, carotid bruit Respiratory system: Bilateral vesicular breath sounds heard, no adventitious breath sounds CVS: S1-S2 heard, no murmurs/rubs/gallop GI: soft and non tender,normal bowel sounds, no organomegaly, no guarding/rigidity surgical site dry and clean, KATHLEEN drain in place. Neuro: No focal neurological deficits present Mental status exam: alert and consciousness, orientation, memory, speech - Cranial nerve test: Cranial nerves 2-12 intact - Motor system: Nutrition, Power 5/5, no involuntary movements - Sensory system: Intact - Reflex testing: Biceps, triceps and knee reflexes 2+ - Cerebellar: Normal Extremities: No edema cyanosis clubbing/deformities Skin: Warm and dry Advance Care Planning Advanced Care plannin - 30 Minutes Plan Plan A 35-year-old male with no past medical history presented to the ED in view of left lower quadrant abdominal pain. Plan: Gangrenous appendicitis Appendectomy Postoperative day 2 Sepsis, POA CT abdomen: Acute appendicitis without definite evidence of perforation or periappendiceal abscess. WBC count normal, elevated procal Patient received Zosyn in the ED. Continue IV Zosyn Q 8h day 1 IV fluids at 100 cc/hour IV Zofran 4 mg q.6h p.r.n. for nausea and vomitings Consulted Dr. Baugh, and patient underwent appendectomy. Microcytic hypochromic anemia HGB: 10.3 Hct 32.4 Follow up with iron panel Thrombocytopenia Platelet 128 Possbily dilutional. Monitor CBC and signs of bleeding Hypokalemia resolved Code status: Full code Diet: Clear liquid diet DVT prophylaxis: SCD Disposition: will continue IV zoysn. Date of Service: Jul 18, 2025 Billing Provider: ANDRE GARCÍA MD Common Visit Codes: [id number] INP/OBS CARE(HIGH) WEI PLASENCIA, RES Jul 18, 2025 15:31 ANDER GARCÍA MD Jul 18, 2025 17:14
[2025-07-19 05:00] VITALS: BP 130/81; PULSE 90; RESP 20; TEMP 98.8; O2SAT 98
[2025-07-19 06:01] LABS: MEAN PLATELET VOLUME 9.1 FL (7.4-10.4); RED CELL DISTRIBUTION WIDTH 16.8 % (11.5-14.5)
[2025-07-19 06:20] LABS: CREATININE 0.65 MG/DL (0.60-1.10); TOTAL CARBON DIOXIDE 28.3 MMOL/L (24-32); eCRCL 153 ML/MIN; eGFR > 90 ML/MIN
--- NOTE | 2025-07-19 06:27 | PROGRESS NOTE ---
DATE: 07/18/2025 DICTATING PHYSICIAN: Norris Meyer MD A 35-year-old male status post robotic appendectomy for ruptured appendicitis pain is improving. On examination, vital signs are unremarkable. output noted. Labs include a WBC of 8, hematocrit of 32. IMPRESSION: Status post robotic appendectomy for ruptured appendicitis. Continues to do well. PLAN: Continue IV antibiotics. Norris Meyer MD TID: [id number] RECEIPT: [id number] KB/ROWDY
[2025-07-19 08:00] VITALS: RESP 16; O2SAT 95
[2025-07-19] MEDS: ketorolac trometh 30MG/ML vial 30 MG/ML VIAL IV PRN (08:16)
[2025-07-19 10:00] VITALS: BP 120/77; PULSE 82; RESP 16; TEMP 97.9; O2SAT 99
--- NOTE | 2025-07-19 12:51 | PROGRESS NOTE ---
Progress Note ID Providers to CC ~ Progress Note Progress Note: doing well/advance diet-cont antibx VANNA VIDLAES MD Jul 19, 2025 12:51
[2025-07-19] MEDS: ondansetron/PF 4mg/2ml inj IV PRN (14:28)
--- NOTE | 2025-07-19 16:45 | CONSULTATION ---
DATE OF CONSULTATION: 07/17/2025 DICTATING PHYSICIAN: Norris Meyer MD REASON FOR CONSULTATION: Abdominal pain. HISTORY OF PRESENT ILLNESS: The patient is a 35-year-old male who presented to the ER with complaints of abdominal discomfort in the right lower quadrant. He has had pain for the past 2 to 3 days. CAT scan in the ER revealed evidence of acute appendicitis. Surgical evaluation is requested. On further questioning, the patient complained of persistent right lower quadrant pain. PAST MEDICAL HISTORY: Negative. PAST SURGICAL HISTORY: Negative. HOME MEDICATIONS: Include Prilosec, clindamycin. ALLERGIES: None. SOCIAL HISTORY: No tobacco or alcohol use. Works as a nurse. REVIEW OF SYSTEMS: See H and P. PHYSICAL EXAMINATION: GENERAL: The patient is a well-nourished male in no distress. VITAL SIGNS: Unremarkable. HEART: Regular rate and rhythm. LUNGS: Clear to auscultation. ABDOMEN: Right lower quadrant tenderness. EXTREMITIES: Unremarkable. NEUROLOGIC: Nonfocal. LABORATORY DATA: Included WBC of 10, hematocrit of 34, platelet count is 135. Chemistries unremarkable. IMAGING: CAT scan reveals evidence of acute appendicitis. IMPRESSION: Acute appendicitis. RECOMMENDATIONS: 1. Admit. 2. Hydrate. 3. Robotic appendectomy, possible open. Norris Meyer MD TID: [id number] RECEIPT: [id number] KB/
[2025-07-19 18:00] VITALS: BP_SYST 131; BP_SYST 153; BP_DIAS 76; BP_DIAS 91; PULSE 55; PULSE 87; RESP 16; RESP 18; TEMP 97.8; TEMP 98.3; O2SAT 99
--- NOTE | 2025-07-19 18:03 | PROGRESS NOTE- Residence ---
Progress Note - Resident Providers to CC Resident Creating Document: WEI PLASENCIA RES ~ Antibiotic Timeout Antibiotic Ordered?: Yes Subjective Patient was seen and examined on bedside, reports no pain , he had 3 bowel movements, one of them was loose, he also had 2 episodes of vomitting after eating. KATHLEEN drain 350 ml Objective Vital Signs Date Time Temp Pulse Resp B/P (MAP) Pulse Ox O2 Delivery O2 Flow Rate FiO2 07/19/25 10:00 97.9 82 16 120/77 (91) 99 Room Air 07/19/25 08:00 0.0 Result Diagram: 07/19/2543707/19/25437 General: Alert, awake, oriented, in acute distress HEENT: PERRLA, no icterus, pallor, lymphadenopathy, carotid bruit Respiratory system: Bilateral vesicular breath sounds heard, no adventitious breath sounds CVS: S1-S2 heard, no murmurs/rubs/gallop GI: soft and non tender,normal bowel sounds, no organomegaly, no guarding/rigidity surgical site dry and clean, KATHLEEN drain in place. Neuro: No focal neurological deficits present Mental status exam: alert and consciousness, orientation, memory, speech - Cranial nerve test: Cranial nerves 2-12 intact - Motor system: Nutrition, Power 5/5, no involuntary movements - Sensory system: Intact - Reflex testing: Biceps, triceps and knee reflexes 2+ - Cerebellar: Normal Extremities: No edema cyanosis clubbing/deformities Skin: Warm and dry Advance Care Planning Advanced Care plannin - 30 Minutes Plan Plan A 35-year-old male with no past medical history presented to the ED in view of left lower quadrant abdominal pain. Plan: Gangrenous appendicitis Appendectomy Postoperative day 2 Sepsis, POA CT abdomen: Acute appendicitis without definite evidence of perforation or periappendiceal abscess. WBC count normal, elevated procal Patient received Zosyn in the ED. Continue IV Zosyn Q 8h day 1 IV fluids at 100 cc/hour IV Zofran 4 mg q.6h p.r.n. for nausea and vomitings Consulted Dr. Baugh, and patient underwent appendectomy. 07/19/2025 Appendectomy postoperative day 3 Continue IV Zosyn day 2 Microcytic hypochromic anemia HGB: 10.3 Hct 32.4 Follow up with iron panel 07/19/25 Hemoglobin 9.9 and HCT 30.5 Ferritin high, iron low and transferrin is awaiting Thrombocytopenia Platelet 128 Possbily dilutional. Monitor CBC and signs of bleeding 07/19/25 Platelets 124, continue monitoring platelets and signs of bleeding Hypokalemia resolved Code status: Full code Diet: Regular DVT prophylaxis: SCD Disposition: Continue IV Zosyn. Wei Plasencia PGY 1 IM Date of Service: Jul 19, 2025 Billing Provider: DIONE RAMOS MD Common Visit Codes: [id number] INP/OBS CARE(HIGH) WEI PLASENCIA, RES Jul 19, 2025 18:03 DIONE RAMOS MD Jul 20, 2025 07:52
[2025-07-19 20:00] VITALS: RESP 19; O2SAT 98
[2025-07-19 22:00] VITALS: BP 125/77; PULSE 79; RESP 19; TEMP 99; O2SAT 98
[2025-07-20 05:39] LABS: MEAN PLATELET VOLUME 9.4 FL (7.4-10.4); RED CELL DISTRIBUTION WIDTH 16.9 % (11.5-14.5)
[2025-07-20 05:54] LABS: CREATININE 0.70 MG/DL (0.60-1.10); TOTAL CARBON DIOXIDE 29.8 MMOL/L (24-32); eCRCL 142 ML/MIN; eGFR > 90 ML/MIN
[2025-07-20] MEDS ORDERED: potassium Cl 40MEQ/1/2NS 520ml 520 ML IV PRN (06:00)
[2025-07-20] MEDS ORDERED: potassium Cl 20 mEq SR tablet PO PRN (06:00)
[2025-07-20] MEDS ORDERED: magnesium sulf-water 4G/100mL 100 ML IV PRN (06:00)
[2025-07-20] MEDS ORDERED: magnesium sulf-water 2g/50mL 50 ML IV PRN (06:00)
[2025-07-20] MEDS ORDERED: magnesium Cl slow-release 64mg tablet PO PRN (06:00)
[2025-07-20] MEDS: potassium Cl 20 mEq SR tablet PO PRN (06:26)
[2025-07-20 07:00] VITALS: BP 128/68; PULSE 64; RESP 18; TEMP 97.8; O2SAT 98
[2025-07-20] MEDS: K and/or MAG REPLACEMENT MC SCH (07:33)
[2025-07-20] MEDS ORDERED: NO HOME MEDS (09:17)
--- NOTE | 2025-07-20 10:18 | PROGRESS NOTE- Residence ---
Progress Note - Resident Providers to CC Resident Creating Document: DIONE RAMOS MD ~ Antibiotic Timeout Antibiotic Ordered?: Yes Subjective Patient was seen and examined on bedside, reports pain 4/1 diffuse abodminal pain with movement,. no nausea no vomitting, tolerated diet, had 1 episode of bowel movement which was mixed formed and watery. Objective Vital Signs Date Time Temp Pulse Resp B/P (MAP) Pulse Ox O2 Delivery O2 Flow Rate FiO2 07/20/25 07:55 Room Air 0.0 07/20/25 07:00 97.8 64 18 128/68 (88) 98 Result Diagram: 07/20/2544007/20/25440 General: Alert, awake, oriented, in acute distress HEENT: PERRLA, no icterus, pallor, lymphadenopathy, carotid bruit Respiratory system: Bilateral vesicular breath sounds heard, no adventitious breath sounds CVS: S1-S2 heard, no murmurs/rubs/gallop GI: soft and non tender,normal bowel sounds, no organomegaly, no guarding/rigidity surgical site dry and clean, , surgical guido, scar present no signs or infection,KATHLEEN drain in place. Neuro: No focal neurological deficits present Mental status exam: alert and consciousness, orientation, memory, speech - Cranial nerve test: Cranial nerves 2-12 intact - Motor system: Nutrition, Power 5/5, no involuntary movements - Sensory system: Intact - Reflex testing: Biceps, triceps and knee reflexes 2+ - Cerebellar: Normal Extremities: No edema cyanosis clubbing/deformities Skin: Warm and dry Advance Care Planning Advanced Care plannin - 30 Minutes Plan Plan A 35-year-old male with no past medical history presented to the ED in view of left lower quadrant abdominal pain. Plan: Gangrenous appendicitis Appendectomy on 07/17/25 Sepsis, POA CT abdomen: Acute appendicitis without definite evidence of perforation or periappendiceal abscess. WBC count normal, elevated procal Patient received Zosyn in the ED. Continue IV Zosyn Q 8h day 3 IV fluids at 100 cc/hour IV Zofran 4 mg q.6h p.r.n. for nausea and vomitings Preliminary blood culture after 3 days are negative Anaemia of Chronic Disease low iron, low transferin,high ferritin. Follow up with CBC. Thrombocytopenia Resolved Mild hypokalemia K 3.[address] follow up with CMP Code status: Full code Diet: Regular DVT prophylaxis: SCDs Disposition: Continue IV Zosyn, possible discharge tomorrow. Maurice Plasencia PGY 1 IM Date of Service: Jul 20, 2025 Billing Provider: DIONE RAMOS MD Common Visit Codes: [id number] INP/OBS CARE(HIGH) MAURICE PLASENCIA, RES Jul 20, 2025 10:18 DIONE RAMOS MD Jul 21, 2025 06:44
[2025-07-20 10:30] VITALS: BP 113/70; PULSE 83; RESP 16; TEMP 98; O2SAT 99
--- NOTE | 2025-07-20 14:00 | PROGRESS NOTE ---
Progress Note Dictate Providers to CC CC: ZAIDA YOST MD ~ Progress Note: Subsequent surgical care on a 35-year-old gentleman who is postoperative day 3, status post robotic assisted, laparoscopic appendectomy for gangrenous appendicitis Covering for Dr. Norris Meyer over the weekend Patient doing well, tolerating diet Moderate serous output from the KATHLEEN drain Normal white blood cell count Incisions clean, dry, and intact Continue current management Likely home tomorrow on oral antibiotics Antibiotic Ordered?: Yes Objective Vitals Vital Signs Date Time Temp Pulse Resp B/P (MAP) Pulse Ox O2 Delivery O2 Flow Rate FiO2 07/20/25 10:30 98.0 83 16 113/70 (84) 99 Room Air 07/20/25 07:55 0.0 Lab Results: 07/20/25 0441 07/20/25 0441 ZAIDA YOST MD Jul 20, 2025 14:00
[2025-07-20 18:00] VITALS: BP 122/81; PULSE 71; RESP 16; TEMP 97.7; O2SAT 98
[2025-07-20 22:00] VITALS: BP 115/68; PULSE 58; RESP 16; TEMP 96.9; O2SAT 96
[2025-07-21 06:00] VITALS: BP 133/78; PULSE 73; RESP 16; TEMP 98; O2SAT 16; O2SAT 99
[2025-07-21 06:09] LABS: MEAN PLATELET VOLUME 8.3 FL (7.4-10.4); RED CELL DISTRIBUTION WIDTH 16.8 % (11.5-14.5)
[2025-07-21 06:30] LABS: PLATELET ESTIMATE NORMAL
[2025-07-21 06:31] LABS: ELLIPTOCYTES FEW
[2025-07-21 06:33] LABS: CREATININE 0.81 MG/DL (0.60-1.10); TOTAL CARBON DIOXIDE 27.7 MMOL/L (24-32); eCRCL 123 ML/MIN; eGFR > 90 ML/MIN
[2025-07-21 08:00] VITALS: RESP 14; O2SAT 99
[2025-07-21 09:40] VITALS: RESP 14
[2025-07-21 10:00] VITALS: BP 128/77; PULSE 73; RESP 16; TEMP 97.3; O2SAT 99
[2025-07-21] MEDS ORDERED: HYDR-3965 PO (10:44)
[2025-07-21] MEDS ORDERED: AMOX-117 PO (10:44)
--- NOTE | 2025-07-21 13:10 | PROGRESS NOTE ---
Progress Note ID Providers to CC ~ Progress Note Progress Note: doing well/dc VANNA VIDALES MD Jul 21, 2025 13:10
--- NOTE | 2025-07-21 16:22 | DISCHARGE SUMMARY-Residence ---
Discharge Summary Providers to CC Resident Creating Document: BLAISE JOSEPHMICHAEL LAURA, RES ~ Discharge Summary Admission Diagnosis: Acute appendicitis Hospital Course DATE OF ADMISSION: 07/17/2025 DATE OF DISCHARGE: 07/21/2025 Discharge Diagnosis\Comment: Gangrenous appendicitis Appendectomy on 07/17/25 Sepsis, POA Anaemia of Chronic Disease Thrombocytopenia Resolved Mild hypokalemia Operations\Procedures: Appendectomy Consultants: General surgeon Complications: None Condition on DC: Stable New Medications: Amox Tr/Potassium Clavulanate (Augmentin 875-125 Tablet) 1 Each Tablet 1 TAB PO Q12H for 7 Days, #14 TAB Hydrocodone Bit/Acetaminophen 5/325 MG (Gillett 5/325 MG) 5 Mg/325 Mg Tablet 1 TAB PO TID PRN PRN for pain for 5 Days, #15 TAB Discontinued Medications: Home Med List (No Home Medications) Each Discharge Summary: HPI: A 35-year-old male with no past medical history presented to the ED in view of left lower quadrant abdominal pain for the last two days. Patient states that he started to have sharp abdominal pain with a severity of 9/10 in the umbilical region that radiated to the left lower quadrant. The pain is more pronounced in the left lower quadrant currently. Abdominal pain increases and moving around and relieves with rest. Patient had associated nausea and vomitings for about at least 90 10 episodes. Patient has loss of appetite. Patient states that he had a fever with a temperature of about 100.7 associated with chills and rigors. Hospital course: 35-year-old male patient presented to the hospital with left lower quadrant abdominal pain. The patient was found with the acute appendicitis evidenced on CT scan of the abdomen/pelvis. General surgeon was consulted who performed appendectomy on 07/17/2025. Gangrenous appendicitis was evidenced reason for which the patient was treated with antibiotics based on Zosyn during his hospita lization, the patient was monitored upon the following days, initially the patient was placed KATHLEEN drain during the surgery which was discontinued on 07/20/2025. The patient remained hemodynamically stable during the hospitalization, antibiotics was transition to oral. The patient will be discharged home. Discharge course: The patient remained hemodynamically stable. The patient will be discharged with the following instructions: Call 911 or come back to the emergency department if severe abdominal pain, fever sensation, chest pain, shortness of breath is evidenced. Take Augmentin one tablet every 12 hours for seven days. Take Gillett one tablet every 8 hours as needed for pain. Follow-up with general surgeon, Dr. Jimenez as an outpatient within two weeks. Physical exam: General: Awake, alert, oriented. No acute distress. Well-developed, hydrated and well-built nourished. No anemia, Jaundice or clubbing. HEENT: Conjunctive are pink, sclerae clear, no icterus, pupil is equal in both sides, reactive to light, no ear discharge, no pharyngeal erythema or an edema. Neck: Supple, no adenopathy, thyromegaly. Trachea is midline. No JVD. Chest: Respiratory: Vesicular breath sounds. No ronchi, crepitus or wheezing. Resonance is normal upon percussion of all lung waterman. Cardiovascular: S1-S2 regular sinus rhythm and, regular rate, no gallops, no rubs, no murmurs Abdomen: No visible distention, Bowel sounds present on auscultation, on palpation: soft, nontender, no guarding, no rigidity. Presence of scar without signs of infection or inflammation from surgery. Extremities: No obvious deformities, no pitting edema bilaterally, capillary refill intact, peripheral pulsations are intact on both sides Neurologic: Mental status: alert and conscious, oriented to place, person and time, preserved memory, normal speech. Cranial nerves I-XII: Normal. Motor system: Preserved power, coordination, no evidenced involuntary movements, strength 5/5 in four extremities. Sensory system: Preserved temperature, pain and vibration sensation. 2+ deep tendon reflexes in biceps, triceps, quadriceps. Negative Babinski. Cerebellar: No nystagmus, dysdiadochokinesia, normal [id number] testing. Skin: Warm and dry. Vital Signs Date Time Temp Pulse Resp B/P (MAP) Pulse Ox O2 Delivery O2 Flow Rate FiO2 07/21/25 10:00 97.3 73 16 128/77 (94) 99 Room Air 0.0 07/21/25 03:02 99 Laboratory Tests Test 07/20/25 04:41 07/21/25 05:00 White Blood Count 4.7 X10'3 3.5 X10'3 Red Blood Count 4.91 X10'6 4.59 X10'6 Hemoglobin 9.8 g/dl 9.5 g/dl Hematocrit 31.2 % 29.3 % Mean Corpuscular Volume 63.6 FL 63.9 FL Mean Corpuscular Hemoglobin 19.9 PG 20.7 PG Mean Corpuscular Hemoglobin Concent 31.3 g/dL 32.5 g/dL Red Cell Distribution Width 16.9 % 16.8 % Platelet Count 164 X10'3 209 X10'3 Mean Platelet Volume 9.4 FL 8.3 FL Neutrophils (%) (Auto) 80.6 % 68.8 % Lymphocytes (%) (Auto) 9.5 % 15.0 % Monocytes (%) (Auto) 9.1 % 14.2 % Eosinophils (%) (Auto) 0.8 % 1.9 % Basophils (%) (Auto) 0 % 0.1 % Neutrophils # (Auto) 3.8 X10'3 2.4 X10'3 Lymphocytes # (Auto) 0.4 X10'3 0.5 X10'3 Monocytes # (Auto) 0.4 X10'3 0.5 X10'3 Eosinophils # (Auto) 0.0 X10'3 0.1 X10'3 Basophils # (Auto) 0.0 X10'3 0.0 X10'3 CBC Comment Sodium Level 140 MMOL/L 142 MMOL/L Potassium Level 3.4 MMOL/L 3.5 MMOL/L Chloride Level 105 MMOL/L 106 MMOL/L Carbon Dioxide Level 29.8 MMOL/L 27.7 MMOL/L Anion Gap 5 8 Blood Urea Nitrogen 13 MG/DL 12 MG/DL Creatinine 0.70 MG/DL 0.81 MG/DL Estimated GFR/1.73 m2 > 90 ML/MIN > 90 ML/MIN BUN/Creatinine Ratio 18.6 14.8 Glucose Level 83 MG/DL 84 MG/DL Calcium Level 8.6 MG/DL 8.2 MG/DL Magnesium Level 2.3 MG/DL 1.9 MG/DL Albumin 2.5 G/DL 2.4 G/DL Chemistry Comments Platelet Estimate Normal Red Blood Cell Morphology Perf Basophilic Stippling Anisocytosis 1+ Microcytosis 2+ Elliptocytes Few Imaging: Abdominal/pelvis CT scan: Acute appendicitis without definite evidence of perforation or periappendiceal abscess. Small sliding-type hiatal hernia. *Problems/Diagnosis: (1) Appendicitis Status: Acute (2) Sepsis Status: Acute Total Time Spent on D/C: > 30 Minutes Date of Service: Jul 21, 2025 Billing Provider: DIONE RAMOS MD Problem Qualifiers (1) Appendicitis: Appendicitis gangrene presence: with gangrene MICHAEL LAMB, RES Jul 21, 2025 16:21
== END 2025-07-21 16:19 | disposition home or self-care (01) | DRG 710 ==
LOC: ER 00:33 → ED HOLD 02:49 → UNDOADMIN 02:49 → ORTHO 4S 02:49 → ED HOLD 11:09 → ORTHO 4S 11:09
PROVIDERS: ADMIT Internal Medicine; ATTEND Internal Medicine
PROC: 8E0W4CZ Robotic Assisted Procedure of Trunk Region, Percutaneous Endoscopic Approach (ICD-10-PCS; 2025-07-17)
PROC: 0DTJ4ZZ Resection of Appendix, Percutaneous Endoscopic Approach (ICD-10-PCS; principal; 2025-07-17 18:38)
DX: A41.9 Sepsis, unspecified organism (principal); D69.6 Thrombocytopenia, unspecified; K35.891 Other acute appendicitis without perforation, with gangrene; D50.8 Other iron deficiency anemias; E87.6 Hypokalemia
CPT/HCPCS: 36415; 74176; 80048; 80053; 81001; 82728; 82948; 83540; 83605; 83690; 83735; 84132; 84145; 84466; 85008; 85025; 87040; 87081; 96365; 96375; 99291; A4215; A4314; A4618; A6212; A6258; A6402; A6449; G0378; J0131; J0694; J1100; J1885; J2250; J2270; J2405; J2543; J2704; J3010; J3490; J7030